=== PATIENT | female | born 1980 | race Caucasian/White ===

== ENCOUNTER 2017-09-16 21:25 | Emergency (ER) | payer OTHER ==
[~2017-09-16] VITALS: Ht 167.6 cm; Wt 106.3 kg
[2017-09-16 21:30] VITALS: BP 152/97
--- NOTE | 2017-09-16 21:40 | NUR ---
PT AMBULATED TO ER BED 02
--- NOTE | 2017-09-16 21:41 | NUR ---
PATIENT PRESENTS TO ED WITH C/O 8/10 LLQ PAIN RADIATING TO LEFT FLANK, GRADUALLY WORSENING, X 2 WEEKS. REPORT NAUSEA AND CHILLs. PT SKIN IS PINK/WARM/DRY; AAOX4 WITH EVEN AND STEADY GAIT; LUNGS CLEAR BL; HR EVEN AND REGULAR; PT DENIES ANY FEVER, CP, SOB, OR COUGH AT THIS TIME; PATIENT STATES PAIN OF 8/10 AT THIS TIME; VSS; PATIENT POSITIONED FOR COMFORT; HOB ELEVATED; BEDRAILS UP X2; BED DOWN. ER MD MADE AWARE OF PT STATUS.
[2017-09-16] MEDS ORDERED: ONDANSETRON 4 MG/2 ML VIAL IVP ONE (22:40)
[2017-09-16] MEDS ORDERED: KETOROLAC 30 MG/ML VIAL IVP ONE (22:40)
[2017-09-16 23:30] LABS: BASOPHILS % (AUTO) 0.4 % (0.0-2.0); EOSINOPHILS % (AUTO) 0.3 % (0.0-4.0); HEMATOCRIT 40.3 % (36-48); HEMOGLOBIN 13.4 g/dL (12.0-16.0); LYMPHOCYTES # (AUTO) 1.3 K/uL (2.5-16.5); LYMPHOCYTES % (AUTO) 19.2 % (20.5-51.1); MEAN CORPUSCULAR HEMOGLOBIN 30 pg (27-31); MEAN CORPUSCULAR HGB CONC 33 g/dL (33-37); MEAN CORPUSCULAR VOLUME 89.8 fL (80-94); MONOCYTES # (AUTO) 0.5 K/uL (0.8-1.0); MONOCYTES % (AUTO) 7.4 % (1.7-9.3); NEUTROPHILS % (AUTO) 72.7 % (42.2-75.2); PLATELET COUNT (AUTO) 194 K/uL (140-450); RED BLOOD CELL COUNT(AUTO) 4.49 MIL/uL (4.20-5.40); RED CELL DISTRIBUTION WIDTH 13.7 % (11.6-13.7); WHITE BLOOD COUNT (AUTO) 6.9 K/uL (4.8-10.8)
[2017-09-16 23:36] LABS: BILIRUBIN,URINE NEGATIVE (NEGATIVE); BLOOD, URINE 2+ (NEGATIVE); COLOR,URINE YELLOW (YELLOW); LEUKOCYTE ESTERASE ,URINE NEGATIVE (NEGATIVE); NITRITE, URINE NEGATIVE (NEGATIVE); UGLUCOSE NEGATIVE (NEGATIVE)
[2017-09-16 23:45] LABS: CARBON DIOXIDE 28.7 mmol/L (21-32); CREATININE 0.8 mg/dL (0.6-1.3); POTASSIUM 3.7 mmol/L (3.5-5.1)
[2017-09-16 23:51] LABS: ALBUMIN 3.4 g/dL (3.4-5.0); TOTAL BILIRUBIN 0.2 mg/dL (0.0-1.0)
--- NOTE | 2017-09-17 | NUR ---
PT RESTING COMFORTABLY IN BED, REPORTS DECREASED PAIN, RR EVEN AND UNLABORED. ALL NEEDS MET.
[2017-09-17 00:02] LABS: APPEARANCE,URINE CLOUDY (CLEAR)
[2017-09-17 00:03] LABS: RBC,URINE 11-20 (MOD) /HPF (0-5); WBC,URINE 0-5 (RARE) /HPF (0-5)
[2017-09-17 01:32] VITALS: BP 134/67
--- NOTE | 2017-09-17 01:47 | NUR ---
WAITING FOR ER MD DR ATKINS DISCHARGE INSTRUCTIONS AND ANY PRESCRIPTIONS.
--- NOTE | 2017-09-17 01:48 | NUR ---
Patient discharged with v/s stable. Written and verbal after care instructions given and explained. Patient alert, oriented and verbalized understanding of instructions. Ambulatory with steady gait. All questions addressed prior to discharge. ID band removed. Patient advised to follow up with PMD. Rx of OMEPRAZOLE, REGLAN given. Patient educated on indication of medication including possible reaction and side effects. Opportunity to ask questions provided and answered.
== END 2017-09-17 01:48 | disposition home or self-care (01) ==
LOC: MED 21:25
DX: K29.70 Gastritis, unspecified, without bleeding (principal)
CPT/HCPCS: 36415; 74176; 80053; 81001; 81025; 83690; 84703; 85025; 96374; 96375; 99285; J1885; J2405

== ENCOUNTER 2017-11-30 17:26 | Emergency (ER) | payer OTHER ==
[~2017-11-30] VITALS: Ht 165.1 cm; Wt 95.3 kg
[2017-11-30 17:31] VITALS: BP 130/58
--- NOTE | 2017-11-30 17:36 | NUR ---
PT AMBULATES TO BED 8
--- NOTE | 2017-11-30 17:38 | NUR ---
Note undone in EDM - 11/30/17 at 1816 by RANJANA BIB . PATIENT PRESENTS TO ED WITH RIGHT KNEE PAIN . PT STATES INJURY AT WORK ON TUESDAY. DENIES N/V/D; SKIN IS PINK/WARM/DRY; AAOX4 WITH EVEN AND STEADY GAIT; LUNGS CLEAR BL; HR EVEN AND REGULAR; PT DENIES ANY FEVER, CP, SOB, OR COUGH AT THIS TIME; PATIENT STATES PAIN OF 8/10 AT THIS TIME; VSS; PATIENT POSITIONED FOR COMFORT; HOB ELEVATED; BEDRAILS UP X2; BED DOWN. PATIENT STATED HISTORY OF STOMACH ULCER. ER MD MADE AWARE OF PT STATUS.
--- NOTE | 2017-11-30 17:38 | NUR ---
BIB . PATIENT PRESENTS TO ED WITH RIGHT KNEE PAIN . PT STATES INJURY AT WORK ON TUESDAY. DENIES N/V/D; SKIN IS PINK/WARM/DRY; AAOX4 AMBULATE WITH CRUTCHES; LUNGS CLEAR BL; HR EVEN AND REGULAR; PT DENIES ANY FEVER, CP, SOB, OR COUGH AT THIS TIME; PATIENT STATES PAIN OF 8/10 AT THIS TIME; VSS; PATIENT POSITIONED FOR COMFORT; HOB ELEVATED; BEDRAILS UP X2; BED DOWN. PATIENT STATED HISTORY OF STOMACH ULCER. ER MD MADE AWARE OF PT STATUS.
--- NOTE | 2017-11-30 18:03 | NUR ---
DR MORATAYA EVALUATING AT BEDSIDE
[2017-11-30] MEDS ORDERED: KETOROLAC 60 MG/2 ML VIAL IM ONE (18:05)
[2017-11-30 18:18] VITALS: BP 116/72
--- NOTE | 2017-11-30 18:19 | NUR ---
Patient discharged with v/s stable. Written and verbal after care instructions given and explained. Patient alert, oriented and verbalized understanding of instructions. Ambulatory with CRUTCHES. All questions addressed prior to discharge. ID band removed. Patient advised to follow up with PMD. Rx of NORCO given. Patient educated on indication of medication including possible reaction and side effects. Opportunity to ask questions provided and answered.
== END 2017-11-30 18:19 | disposition home or self-care (01) ==
LOC: MED 17:26
DX: M25.561 Pain in right knee (principal)
CPT/HCPCS: 96372; 99283; J1885

== ENCOUNTER 2018-06-27 19:16 | Emergency (ER) | payer OTHER ==
[~2018-06-27] VITALS: Ht 165.1 cm; Wt 108.1 kg
[2018-06-27 19:40] VITALS: BP 143/74
--- NOTE | 2018-06-27 19:45 | NUR ---
TO LOBBY, VSS.
--- NOTE | 2018-06-27 20:12 | NUR ---
PT BIB SELF CO 10/18 SUPRAPUBIC CRAMPING PAIN SINCE 1500 S/P LIFTING HEAVY BOXES. -- PMH: DENIES -- RX: MOTRIN AND TYLENOL
--- NOTE | 2018-06-27 20:15 | NUR ---
PT AMBULATED TO ER BED 11
[2018-06-27] MEDS ORDERED: KETOROLAC 60 MG/2 ML VIAL IM ONE (20:25)
--- NOTE | 2018-06-27 20:53 | NUR ---
Dr. Marley evaluating patient at bedside.
[2018-06-27 21:07] VITALS: BP 131/86
--- NOTE | 2018-06-27 21:07 | NUR ---
Patient discharged with v/s stable. Written and verbal after care instructions given and explained. Patient alert, oriented and verbalized understanding of instructions. Ambulatory with steady gait. All questions addressed prior to discharge. ID band removed. Patient advised to follow up with PMD. Rx of Prilosec, [place], and Motrin given. Patient educated on indication of medication including possible reaction and side effects. Opportunity to ask questions provided and answered.
== END 2018-06-27 21:07 | disposition home or self-care (01) ==
LOC: MED 19:16
DX: R10.12 Left upper quadrant pain (principal); M79.18 Myalgia, other site
CPT/HCPCS: 81002; 81025; 96372; 99283; J1885

== ENCOUNTER 2020-08-11 01:05 | Emergency (ER) | payer MEDICAID, OTHER ==
[~2020-08-11] VITALS: Ht 162.6 cm; Wt 99.8 kg
[2020-08-11 01:08] VITALS: BP 159/90
--- NOTE | 2020-08-11 01:08 | NUR ---
TO BED AMBULATORY
--- NOTE | 2020-08-11 01:13 | NUR ---
Monica slaughter in [facility] - 08/11/20 at 0113 by MARY PT TAKEN TO BED 6
--- NOTE | 2020-08-11 01:22 | NUR ---
Dr. Marley examining patient.
--- NOTE | 2020-08-11 01:26 | NUR ---
40 YO FEMALE C/O SHARP PAIN IN THE FRONT AND BACK OF HER HEAD SINCE MIDNIGHT. PT STATES PAIN IS 9/10 THAT DOES NOT RADIATE WITH A SUDDEN ONSET. PT HAS SUDDEN LOSS OF VISION IN HER LEFT EYE THAT STARTED YESTERDAY. LEFT PUPIL DIALATES WITH LIGHT. PT DENIES ANY N/V/D, FEVER OR CHILLS. NO PMH NO RX
--- NOTE | 2020-08-11 01:33 | NUR ---
DELAY IN COLLECTION OF LABS D/T PATIENT NEEDING TO GO TO CT STAT.
--- NOTE | 2020-08-11 01:34 | NUR ---
PT TAKEN TO CT
--- NOTE | 2020-08-11 01:40 | NUR ---
LABS DRAWN AND HANDED TO RAMA FROM PETER.
--- NOTE | 2020-08-11 01:40 | NUR ---
PT RETURN FROM CT
[2020-08-11 02:03] LABS: BASOPHILS % (AUTO) 0.3 % (0.0-2.0); EOSINOPHILS % (AUTO) 0.4 % (0.0-4.0); HEMATOCRIT 38.2 % (36-48); HEMOGLOBIN 12.8 g/dL (12.0-16.0); LYMPHOCYTES # (AUTO) 1.5 K/uL (2.5-16.5); LYMPHOCYTES % (AUTO) 20.4 % (20.5-51.1); MEAN CORPUSCULAR HEMOGLOBIN 30 pg (27-31); MEAN CORPUSCULAR HGB CONC 34 g/dL (33-37); MEAN CORPUSCULAR VOLUME 90.2 fL (80-94); MONOCYTES # (AUTO) 0.5 K/uL (0.8-1.0); MONOCYTES % (AUTO) 6.2 % (1.7-9.3); NEUTROPHILS # (AUTO) 5.3 K/uL (1.8-7.7); NEUTROPHILS % (AUTO) 72.7 % (42.2-75.2); PLATELET COUNT (AUTO) 181 K/uL (140-450); RED BLOOD CELL COUNT(AUTO) 4.23 MIL/uL (4.20-5.40); RED CELL DISTRIBUTION WIDTH 14.2 % (11.6-13.7); WHITE BLOOD COUNT (AUTO) 7.3 K/uL (4.8-10.8)
--- NOTE | 2020-08-11 02:08 | NUR ---
ERMD AT BEDSIDE FOR CONTINUATION OF CARE.
[2020-08-11 02:16] LABS: ALBUMIN 3.2 g/dL (3.4-5.0); ANION GAP 11.2 (8-16); CARBON DIOXIDE 26.3 mmol/L (21-32); CREATININE 0.7 mg/dL (0.6-1.3); POTASSIUM 3.5 mmol/L (3.5-5.1); TOTAL BILIRUBIN 0.2 mg/dL (0.0-1.0)
--- NOTE | 2020-08-11 02:37 | NUR ---
ERMD AT BEDSIDE FOR CONTINUATION OF CARE.
[2020-08-11] MEDS: KETOROLAC 60 MG/2 ML VIAL IM ONE (02:45)
[2020-08-11] MEDS ORDERED: ONDA8TAB87 PO (02:51)
[2020-08-11] MEDS ORDERED: ACET-8386 PO (02:51)
[2020-08-11] MEDS ORDERED: IBUP-2213 PO (02:51)
--- NOTE | 2020-08-11 02:54 | NUR ---
Dr. Marley re-examining patient.
[2020-08-11 03:05] VITALS: BP 117/66
--- NOTE | 2020-08-11 03:05 | NUR ---
Patient discharged with v/s stable. Written and verbal after care instructions given and explained. Patient alert, oriented and verbalized understanding of instructions. Ambulatory with steady gait. All questions addressed prior to discharge. ID band removed. Patient advised to follow up with PMD. Rx of IBUPROFEN, HYDROCODONE/ACETAMINOPHEN, ZOFRAN given. Patient educated on indication of medication including possible reaction and side effects. Opportunity to ask questions provided and answered.
--- NOTE | 2020-08-11 03:05 | NUR ---
PATIENT STATES HER WILL BE DRIVING HER HOME.
== END 2020-08-11 03:05 | disposition home or self-care (01) ==
LOC: MED 01:05
DX: H33.002 Unspecified retinal detachment with retinal break, left eye (principal); R51.9 Headache, unspecified
CPT/HCPCS: 36415; 70450; 80053; 81002; 81025; 85025; 96372; 99284; J1885

== ENCOUNTER 2020-11-07 05:40 | Emergency (ER) | payer SELFPAY ==
[~2020-11-07] VITALS: Ht 167.6 cm; Wt 118.4 kg
[~2020-11-07 05:40] MED LIST: ACET-8386 PO; IBUP-2213 PO; ONDA8TAB87 PO
[2020-11-07 05:50] VITALS: BP 141/63
--- NOTE | 2020-11-07 05:55 | NUR ---
PT TAKENT TO BED 8
--- NOTE | 2020-11-07 06:25 | NUR ---
Dr. Dupree examining patient.
--- NOTE | 2020-11-07 06:27 | NUR ---
40YO F BIB SELF WITH C/C OF EPIGASTRIC PAIN X1 DAY 01/18. PT STATED SHES HAD THIS PAIN 2 MOS AGO AND IT WENT AWAY ON ITS OWN. PT HAD 1 EPISODE OF VOMITING. -FEVER, CHILLS, COUGH AND DIARRHEA. ABD IS TENDER TO TOUCH. BOWEL SOUNDS ACTIVE X4. HX: THINKS GASTRITIS OR ULCER RX: FAMOTIDINE NKA
[2020-11-07] MEDS ORDERED: DICYCLOMINE HCL LIQUID 20 MG, ALUMINUM HYD/MAG/SIMETHICONE 30 ML, LIDOCAINE VISCOUS 2% ... PO ONE ×3 (06:35)
[2020-11-07] MEDS ORDERED: PANTOPRAZOLE 40 MG TABEC PO ONE (06:35)
[2020-11-07] MEDS ORDERED: ALUMINUM HYD/MAG/SIMETHICONE 30 ML UDC ONE ×2 (06:36→06:37)
[2020-11-07] MEDS ORDERED: DICYCLOMINE HCL LIQUID 10 MG/5 ML UDC ONE (06:36)
--- NOTE | 2020-11-07 07:20 | NUR ---
REPORT GIVEN TO COLLETTE LAWRENCE. TRANSFER OF CARE AT THIS TIME.
--- NOTE | 2020-11-07 07:22 | NUR ---
RECIEVED REPORT FROM COLLETTE JOSHUA. TRANSFER OF CARE RECIEVED
--- NOTE | 2020-11-07 07:46 | NUR ---
LAB WORK TAKEN BEDSIDE AND WALKED OVER TO LAB.
[2020-11-07] MEDS ORDERED: OMEP20EC11 PO (07:51)
[2020-11-07 08:19] LABS: BASOPHILS % (AUTO) 0.6 % (0.0-2.0); EOSINOPHILS % (AUTO) 0.4 % (0.0-4.0); HEMATOCRIT 38.8 % (36-48); LYMPHOCYTES # (AUTO) 1.4 K/uL (2.5-16.5); LYMPHOCYTES % (AUTO) 23.5 % (20.5-51.1); MEAN CORPUSCULAR HEMOGLOBIN 30 pg (27-31); MEAN CORPUSCULAR HGB CONC 34 g/dL (33-37); MEAN CORPUSCULAR VOLUME 90.1 fL (80-94); MONOCYTES # (AUTO) 0.4 K/uL (0.8-1.0); MONOCYTES % (AUTO) 6.1 % (1.7-9.3); NEUTROPHILS # (AUTO) 4.1 K/uL (1.8-7.7); NEUTROPHILS % (AUTO) 69.4 % (42.2-75.2); PLATELET COUNT (AUTO) 178 K/uL (140-450); RED BLOOD CELL COUNT(AUTO) 4.31 MIL/uL (4.20-5.40); RED CELL DISTRIBUTION WIDTH 13.9 % (11.6-13.7)
[2020-11-07 08:33] LABS: ALBUMIN 3.2 g/dL (3.4-5.0); ANION GAP 15.1 (8-16); CARBON DIOXIDE 24.6 mmol/L (21-32); CREATININE 0.7 mg/dL (0.6-1.3); POTASSIUM 3.7 mmol/L (3.5-5.1); TOTAL BILIRUBIN 0.3 mg/dL (0.0-1.0)
--- NOTE | 2020-11-07 08:42 | NUR ---
PT RESTING IN BED CURRENTLY. VITAL SIGNS STABLE. BED IN LOWEST POSITION. SIDERAIL X1 UP. WILL CONTINUE TO MONITOR. PT STATES CURRENT PAIN "07/19, BUT DURABLE"
[2020-11-07 09:11] VITALS: BP 111/57
--- NOTE | 2020-11-07 09:11 | NUR ---
Patient discharged with v/s stable. Written and verbal after care instructions given and explained. Patient alert, oriented and verbalized understanding of instructions. Ambulatory with steady gait. All questions addressed prior to discharge. ID band removed. Patient advised to follow up with PMD. Rx of OMEPRAZOLE 20 MG PO DAILY given. Patient educated on indication of medication including possible reaction and side effects. Opportunity to ask questions provided and answered.
== END 2020-11-07 09:11 | disposition home or self-care (01) ==
LOC: MED 05:40
DX: R10.13 Epigastric pain (principal)
CPT/HCPCS: 36415; 80053; 81002; 81025; 83690; 85025; 99283